=== PATIENT | male | born 1930 | race Caucasian/White ===

== ENCOUNTER → 2016-10-09 | Outpatient (CLI) | payer MEDICARE, OTHER ==
[~2016-10-09] MED LIST: /TAMS4CA PO; ACET65TA; ASPI325T; ATEN25TA; CALC12502; CITRACAL; COLA100C2; FLEXERIL; LIPI20TA; MICA40TA; NIAS500T2; OXYC10TA97; PERC5TAB8; THERGRAN; VIT D; XANA0.25 PO; tramadol PO
[2016-10-09 14:56] LABS: MEAN CORPUSCULAR HEMOGLOBIN 29.6 pg (27.0-33.0); MEAN CORPUSCULAR HGB CONC 32.6 g/dl (32.0-36.5); MEAN CORPUSCULAR VOLUME 90.9 fl (80.0-96.0); RED CELL DISTRIBUTION WIDTH 14.4 % (11.5-14.5); WHITE BLOOD COUNT 6.6 K/mm3 (4.0-10.0)
[2016-10-09 14:57] LABS: ALBUMIN 3.6 GM/DL (3.2-5.2); ANION GAP 8 MEQ/L (8-16); BLOOD UREA NITROGEN 17 MG/DL (7-18); CALCIUM LEVEL 8.1 MG/DL (8.8-10.2); CARBON DIOXIDE LEVEL 28 MEQ/L (21-32); CHLORIDE LEVEL 102 MEQ/L (98-107); CREATININE FOR GFR 1.12 MG/DL (0.70-1.30); GLOMERULAR FILTRATION RATE > 60.0 (>35); GLUCOSE, FASTING 113 MG/DL (83-110); MAGNESIUM LEVEL 2.1 MG/DL (1.8-2.4); PHOSPHORUS LEVEL 3.4 MG/DL (2.5-4.9); POTASSIUM SERUM 4.6 MEQ/L (3.5-5.1); SODIUM LEVEL 138 MEQ/L (136-145)
== END ==
LOC: M LAB 13:54
PROVIDERS: ATTEND Physician Assistant
DX: I48.2 Chronic atrial fibrillation (principal); I10 Essential (primary) hypertension

== ENCOUNTER → 2016-11-13 | Outpatient (REF) | payer MEDICARE, OTHER | LOC: M LAB REF 16:28 | PROVIDERS: ATTEND Surgery | DX: C44.622 Squamous cell carcinoma of skin of right upper limb, including shoulder (principal) ==

== ENCOUNTER → 2017-10-23 | Outpatient (REF) | payer MEDICARE, OTHER ==
[2017-10-23 13:31] LABS: APPEARANCE, URINE CLEAR (CLEAR); BACTERIA, URINE AUTO NEGATIVE (NEGATIVE); BILIRUBIN, URINE AUTO NEGATIVE (NEGATIVE); BLOOD, URINE BLOOD NEGATIVE (NEGATIVE); COLOR, URINE YELLOW (YELLOW); GLUCOSE, URINE (UA) AUTO NEGATIVE (NEGATIVE); KETONE, URINE AUTO NEGATIVE (NEGATIVE); LEUKOCYTE ESTERASE, URINE AUTO NEGATIVE (NEGATIVE); NITRITE, URINE AUTO NEGATIVE (NEGATIVE); PROTEIN, URINE AUTO NEGATIVE (NEGATIVE); RBC, URINE AUTO 1 /HPF (0-3); SPECIFIC GRAVITY URINE AUTO 1.012 (1.002-1.035); SQUAMOUS EPITHELIAL CELL UR AU 0 /HPF (0-6); UROBILINOGEN, URINE AUTO 0.2 mg/dL (0.0-2.0); WBC, URINE AUTO 0 /HPF (0-3)
== END ==
LOC: M SMT 13:01
DX: R30.0 Dysuria (principal)
CPT/HCPCS: 81001

== ENCOUNTER → 2018-02-28 | Outpatient (CLI) | payer MEDICARE, OTHER | LOC: M RAD 13:57 | DX: M25.561 Pain in right knee (principal); Z96.651 Presence of right artificial knee joint; Z91.81 History of falling | CPT/HCPCS: 73564 ==

== ENCOUNTER → 2018-03-25 | Outpatient (REF) | payer MEDICARE, OTHER | LOC: M LAB REF 17:45 | DX: C44.320 Squamous cell carcinoma of skin of unspecified parts of face (principal) | CPT/HCPCS: 88305 ==

== ENCOUNTER → 2018-10-11 | Outpatient (CLI) | payer MEDICARE, BC, OTHER ==
[~2018-10-11] MED LIST changes: -/TAMS4CA PO; +FLOM0.4C39 PO
[2018-10-12 10:12] LABS: BLOOD UREA NITROGEN 17 MG/DL (7-18); CALCIUM LEVEL 8.8 MG/DL (8.8-10.2); CARBON DIOXIDE LEVEL 30 MEQ/L (21-32); CHLORIDE LEVEL 106 MEQ/L (98-107); CREATININE FOR GFR 0.94 MG/DL (0.70-1.30); GLOMERULAR FILTRATION RATE > 60.0 (>35); GLUCOSE, FASTING 95 MG/DL (70-100); SODIUM LEVEL 140 MEQ/L (136-145)
== END ==
LOC: M SMT 14:49
PROVIDERS: ATTEND Nurse Practitioner Women's Health
DX: N28.1 Cyst of kidney, acquired (principal)
CPT/HCPCS: 36415; 80048; G0463

== ENCOUNTER → 2018-10-21 | Outpatient (CLI) | payer MEDICARE, BC, OTHER ==
[~2018-10-21] MED LIST changes: +ISOVUE-370 76% 100ML VIAL (Q9967) As Ordered ONE
--- NOTE | 2018-10-21 15:19 | REP ---
REASON: Renal cyst followup. COMPARISON: Multiple, the latest 12/25/2015. CONTRAST: 100 mL Isovue 370. There are chronic stable changes in the lung bases. There is a nodule in the left lower lobe which is completely unchanged. There is cylindrical bronchiectasis in the lung bases which is unchanged. There are other smaller nodules in the lung bases also stable. The precontrast enhanced portion of the exam shows hepatic and splenic densities to be within normal limits. In the inferior pole of the right kidney there are two nonobstructing nephroliths status quo. The precontrast enhanced portion of the examination shows cholelithiasis status quo. The contrast enhanced portion of the examination shows stable renal cysts. There are no septations and there is no abnormal enhancement. The size has remained stable since 12/25/2015. The liver and spleen are within normal limits. The pancreas, adrenal glands, abdominal aorta, and periaortic regions are were all stable. 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 No free fluid or free air is seen in the abdomen. There is no significant change in the appearance of the bowel loops or their mesenteries. No intra-abdominal mass or adenopathy has developed. 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 There is extensive sigmoid colon diverticulosis. There is no evidence of a pelvic mass or adenopathy. There is no significant change in the appearance of the osseous structures. IMPRESSION: 1. Nonobstructing right nephroliths status quo. 2. 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 3. Chronic aortic and aortoiliac changes. 4. Cholelithiasis status quo. 5. No evidence of acute intra-abdominal or intrapelvic disease. Other findings as described above. Electronically Signed by Ted Baird DO 10/21/2018 04:33 P
== END ==
LOC: M RAD 13:13
PROVIDERS: ATTEND Nurse Practitioner Women's Health
DX: N28.1 Cyst of kidney, acquired (principal); N20.0 Calculus of kidney
CPT/HCPCS: 74178; Q9967

== ENCOUNTER → 2019-01-06 | Outpatient (REF) | payer MEDICARE, OTHER ==
[~2019-01-06] MED LIST changes: -ISOVUE-370 76% 100ML VIAL (Q9967) As Ordered ONE
== END ==
LOC: M LAB REF 16:39
PROVIDERS: ATTEND Surgery
DX: C44.42 Squamous cell carcinoma of skin of scalp and neck (principal)